=== PATIENT | female | born 1965 | race Caucasian/White ===

== ENCOUNTER 2018-07-02 08:47 | Day surgery (SDC) | payer OTHER ==
[2018-07-02] MEDS ORDERED: FENTAnyl 50 MCG/ML VIAL (10:41)
[2018-07-02] MEDS ORDERED: ATROPINE 1 MG/10 ML SYRINGE (10:42)
[2018-07-02] MEDS ORDERED: MIDAZOLAM 1 MG/ML 2 ML INJ ×2 (10:42)
== END 2018-07-02 11:41 | disposition home or self-care (01) ==
LOC: GIL 08:47
DX: Z12.11 Encounter for screening for malignant neoplasm of colon (principal); D12.8 Benign neoplasm of rectum
CPT/HCPCS: 45380; 84703; 88305